=== PATIENT | male | born 1970 | race Two or more races ===

== ENCOUNTER 2021-07-12 19:11 | Emergency (ER) | payer OTHER ==
[~2021-07-12] VITALS: Ht 180.3 cm; Wt 79.4 kg
[2021-07-12] MEDS ORDERED: METOCLOPRAMIDE HCL 10 MG/2 ML VIAL IV ONE (20:00)
[2021-07-12] MEDS ORDERED: IV NS 0.9% 1,000 ML BAG IV ONE (20:00)
[2021-07-12 20:07] LABS: BASOPHILS % (AUTO) 0.3 % (0.0-2.0); HEMATOCRIT 46 % (39-51); HEMOGLOBIN 15.1 g/dL (13.5-17.5); LYMPHOCYTES # (AUTO) 1.4 K/uL (0.8-4.8); MEAN CORPUSCULAR HGB CONC 33 g/dl (31.0-36.0); MEAN CORPUSCULAR VOLUME 86 fL (80-96); MONOCYTES # (AUTO) 0.7 K/uL (0.1-1.30); MONOCYTES % (AUTO) 5.8 % (2.0-12.0); NEUTROPHILS # (AUTO) 9.2 K/uL (1.8-8.9); NEUTROPHILS % (AUTO) 80.9 % (43.0-81.0); PLATELET COUNT (AUTO) 223 K/uL (150-450); RED BLOOD CELL COUNT(AUTO) 5.28 MIL/uL (4.5-6.0); WHITE BLOOD COUNT (AUTO) 11.4 K/uL (4.3-11.0)
[2021-07-12] MEDS ORDERED: METOCLOPRAMIDE HCL 10 MG/2 ML VIAL ONE (20:14)
[2021-07-12 20:18] LABS: CREATININE 0.9 mg/dL (0.6-1.3); POTASSIUM 3.9 mmol/L (3.5-5.1)
[2021-07-12] MEDS ORDERED: IV NS 0.9% 250 ML IV ONE (21:24)
[2021-07-12] MEDS ORDERED: IOHEXOL-350 100 ML VIAL IV ONE (21:24)
[2021-07-12] MEDS ORDERED: KETOROLAC TROMETHAMINE INJ 30 MG/ML VIAL IV ONE (22:30)
[2021-07-12] MEDS ORDERED: KETOROLAC TROMETHAMINE INJ 30 MG/ML VIAL ONE (22:30)
[2021-07-12] MEDS ORDERED: AMLO5TAB4 PO (22:45)
[2021-07-12] MEDS ORDERED: IBUP-1955 PO (22:45)
[2021-07-12 22:47] VITALS: BP 161/90
--- NOTE | 2021-07-12 22:47 | NUR ---
Patient discharged to home in stable condition. Written and verbal after care instructions given. Patient verbalizes understanding of instruction.
== END 2021-07-12 22:51 | disposition home or self-care (01) ==
LOC: ER 19:12
DX: R51.9 Headache, unspecified (principal); I10 Essential (primary) hypertension; F17.200 Nicotine dependence, unspecified, uncomplicated
CPT/HCPCS: 36415; 70450; 70496; 80048; 85025; 85730; 96361; 96374; 96375; 99285; J1885; J2765; J7030 ×2; J7050; Q9967